=== PATIENT | male | born 1955 | race Caucasian/White ===

== ENCOUNTER → 2020-02-08 12:10 | Outpatient (BNVA) | payer SELFPAY | PROVIDERS: Family Provider Nurse Practitioner Family; PCP Nurse Practitioner Family; Visit Provider Specialist | DX: G43.909 Migraine, unspecified, not intractable, without status migrainosus (principal) | CPT/HCPCS: 99212 ==

== ENCOUNTER → 2020-06-02 08:24 | Outpatient (BNVA) | payer SELFPAY | PROVIDERS: Family Provider Nurse Practitioner Family; PCP Nurse Practitioner Family; Visit Provider Nurse Practitioner Family | DX: I10 Essential (primary) hypertension (principal); E87.5 Hyperkalemia; R79.89 Other specified abnormal findings of blood chemistry; R74.8 Abnormal levels of other serum enzymes | CPT/HCPCS: 80053 ==

== ENCOUNTER → 2020-08-22 09:01 | Outpatient (BNVA) | payer SELFPAY | PROVIDERS: Family Provider Nurse Practitioner Family; PCP Nurse Practitioner Family; Visit Provider Registered Nurse | DX: N18.30 Chronic kidney disease, stage 3 unspecified (principal) | CPT/HCPCS: 81000; 82043 ==

== ENCOUNTER → 2020-08-30 08:43 | Outpatient (BNVA) | payer SELFPAY | PROVIDERS: Family Provider Nurse Practitioner Family; PCP Nurse Practitioner Family; Visit Provider Internal Medicine Nephrology | DX: N18.32 Chronic kidney disease, stage 3b (principal) | CPT/HCPCS: 81003 ==

== ENCOUNTER → 2020-09-09 09:06 | Outpatient (BNVA) | payer SELFPAY | PROVIDERS: Family Provider Nurse Practitioner Family; PCP Nurse Practitioner Family; Visit Provider Nurse Practitioner Family | DX: N18.30 Chronic kidney disease, stage 3 unspecified (principal) | CPT/HCPCS: 81000 ==

== ENCOUNTER → 2020-12-07 08:11 | Outpatient (BNVA) | payer SELFPAY | PROVIDERS: Family Provider Nurse Practitioner Family; PCP Nurse Practitioner Family; Visit Provider Registered Nurse | DX: N18.32 Chronic kidney disease, stage 3b (principal) | CPT/HCPCS: 80069; 82043; 82306; 82310; 83970 ==

== ENCOUNTER → 2020-12-28 08:04 | Outpatient (BNVA) | payer SELFPAY | PROVIDERS: Family Provider Nurse Practitioner Family; PCP Nurse Practitioner Family; Visit Provider Internal Medicine Nephrology | DX: N18.32 Chronic kidney disease, stage 3b (principal) | CPT/HCPCS: 80048 ==

== ENCOUNTER → 2021-01-31 08:10 | Outpatient (BNVA) | payer SELFPAY | PROVIDERS: Family Provider Nurse Practitioner Family; PCP Nurse Practitioner Family; Visit Provider Nurse Practitioner | DX: Z01.89 Encounter for other specified special examinations (principal) ==

== ENCOUNTER → 2021-02-07 09:01 | Outpatient (BNVA) | payer SELFPAY | PROVIDERS: Family Provider Nurse Practitioner Family; PCP Nurse Practitioner Family; Visit Provider Nurse Practitioner Family | DX: E87.5 Hyperkalemia (principal); E78.5 Hyperlipidemia, unspecified; I10 Essential (primary) hypertension; E11.69 Type 2 diabetes mellitus with other specified complication; N52.9 Male erectile dysfunction, unspecified; N18.9 Chronic kidney disease, unspecified | CPT/HCPCS: 80053 ==

== ENCOUNTER → 2021-02-15 08:30 | Outpatient (BNVA) | payer SELFPAY | PROVIDERS: Family Provider Nurse Practitioner Family; PCP Nurse Practitioner Family; Visit Provider Internal Medicine Nephrology | DX: N18.9 Chronic kidney disease, unspecified (principal) | CPT/HCPCS: 80048 ==

== ENCOUNTER → 2021-03-13 08:31 | Outpatient (BNVA) | payer SELFPAY | PROVIDERS: Family Provider Nurse Practitioner Family; PCP Nurse Practitioner Family; Visit Provider Nurse Practitioner Family | DX: E87.5 Hyperkalemia (principal); I10 Essential (primary) hypertension | CPT/HCPCS: 80048 ==

== ENCOUNTER → 2021-05-02 09:01 | Outpatient (BNVA) | payer SELFPAY | PROVIDERS: Family Provider Nurse Practitioner Family; PCP Dermatology; Visit Provider Dermatology | DX: Z01.89 Encounter for other specified special examinations (principal) ==

== ENCOUNTER → 2021-06-07 08:13 | Outpatient (BNVA) | payer SELFPAY | PROVIDERS: Family Provider Nurse Practitioner Family; PCP Nurse Practitioner Family; Visit Provider Internal Medicine Nephrology | DX: N18.32 Chronic kidney disease, stage 3b (principal) | CPT/HCPCS: 80069; 82043; 82310; 83970; 85025 ==

== ENCOUNTER → 2021-07-25 09:44 | Outpatient (BNVA) | payer SELFPAY | PROVIDERS: Family Provider Nurse Practitioner Family; PCP Nurse Practitioner Family; Visit Provider Dermatology | DX: Z01.89 Encounter for other specified special examinations (principal) ==

== ENCOUNTER → 2021-10-24 09:12 | Outpatient (BNVA) | payer SELFPAY | PROVIDERS: Family Provider Nurse Practitioner Family; PCP Nurse Practitioner Family; Visit Provider Dermatology | DX: Z01.89 Encounter for other specified special examinations (principal) ==

== ENCOUNTER → 2022-01-23 08:20 | Outpatient (BNVA) | payer SELFPAY | PROVIDERS: Family Provider Nurse Practitioner Family; PCP Nurse Practitioner Family; Visit Provider Dermatology | DX: Z01.89 Encounter for other specified special examinations (principal) ==

== ENCOUNTER 2022-03-09 14:32 | Outpatient (CLI) | payer MEDICARE, SELFPAY ==
--- NOTE | 2022-03-09 15:00 | USCV_ITS ---
Darvin Marrero Age: 66 Gender: M : 1955 Exam Date: 03/09/2022 14:59 Ordering Phys: Vidhya Pearson MD ([email or web address]) Technologist: GROVER Exam Location: [facility] – [place] Indication: SOB/AI BP: 130 / 84 HR: 69 Rhythm: Sinus Technical Quality: Adequate MEASUREMENTS (Male / Female) Normal Values 2D ECHO LV Diastolic Diameter PLAX 4.8 cm 4.2 - 5.9 / 3.9 - 5.3 cm LV Systolic Diameter PLAX 2.9 cm IVS Diastolic Thickness 1.0 cm 0.6 - 1.0 / 0.6 - 0.9 cm IVS Systolic Thickness 1.2 cm LVPW Diastolic Thickness 1.0 cm 0.6 - 1.0 / 0.6 - 0.9 cm LVPW Systolic Thickness 1.8 cm LVOT Diameter 2.2 cm LV Ejection Fraction 2D Teich 69.5 % LV Ejection Fraction MOD 2C 68.6 % LV Ejection Fraction 2C AL 70.5 % LA Diameter 2.5 cm LA Width 3.2 cm LA Height 4.5 cm RA Width 2.4 cm RA Height 3.6 cm Aorta at Sinotubular Diameter 3.0 cm IVC Diameter 1.1 cm DOPPLER AV Peak Velocity 123.0 cm/s LVOT Peak Velocity 94.0 cm/s AV Area Cont Eq vti 3.0 cm squared AV Area Cont Eq pk 2.9 cm squared MV Peak Velocity 121.0 cm/s MV Area PHT 5.0 cm squared Mitral E to A Ratio 0.7 MV E' Velocity 30.5 cm/s Mitral E to MV E' Ratio 6.3 Mitral E to LV E' Lateral Ratio 4.9 Mitral E to LV E' Septal Ratio 8.6 TR Peak Velocity 206.7 cm/s TR Peak Gradient 17.1 mmHg Right Atrial Pressure 3.0 mmHg Pulmonary Artery Systolic Pressu 20.1 mmHg PV Peak Velocity 72.0 cm/s RV Acceleration Time 0.1 s FINDINGS Left Ventricle Mildly dilated left ventricular size. Mildly decreased left ventricular systolic function. Left ventricular ejection fraction is estimated at 50-55 %. Mild global hypokinesis. Grade II diastolic dysfunction, moderately elevated filling pressures. Right Ventricle Normal right ventricular size and systolic function. Right ventricular systolic pressure 29 mmHg. Right Atrium Normal right atrial size. Left Atrium Mildly increased left atrial size. Mitral Valve Structurally normal mitral valve. No mitral valve stenosis. Trace mitral valve regurgitation. Aortic Valve Mildly thickened trileaflet aortic valve. No aortic valve stenosis. Moderate to severe aortic valve regurgitation. Tricuspid Valve Structurally normal tricuspid valve. No tricuspid valve stenosis. Trace to mild tricuspid valve regurgitation. Pulmonic Valve Structurally normal pulmonic valve. No pulmonary valve stenosis. Trace pulmonary valve regurgitation. Pericardium No pericardial effusion. Aorta Normal size aortic root and proximal ascending aorta. IVC Normal inferior vena cava. CONCLUSIONS 1. Mildly dilated left ventricular size. Mildly decreased left ventricular systolic function. Left ventricular ejection fraction is estimated at 50-55 %. Mild global hypokinesis. Grade II diastolic dysfunction, moderately elevated filling pressures. 2. Normal right ventricular size and systolic function. 3. Moderate to severe aortic valve regurgitation. 4. Pulmonary pressure estimated at 29 mmHg. 5. When compared to previous study dated 07/11/2018, aortic valve regurgitation seems to have worsened slightly. Vidhya Pearson MD (Electronically Signed) Final Date: 12 March 2022 17:15 S
== END 2022-03-09 14:33 | disposition home or self-care (01) ==
LOC: RAD 14:36
PROVIDERS: PCP Nurse Practitioner Family; Visit Provider Internal Medicine Cardiovascular Disease
DX: R06.02 Shortness of breath (principal); I35.1 Nonrheumatic aortic (valve) insufficiency
CPT/HCPCS: C8929; Q9956

== ENCOUNTER → 2022-04-02 13:33 | Outpatient (BNVA) | payer MEDICARE, SELFPAY | PROVIDERS: PCP Nurse Practitioner Family; Visit Provider Internal Medicine Cardiovascular Disease | DX: I11.0 Hypertensive heart disease with heart failure (principal); I50.9 Heart failure, unspecified; E78.5 Hyperlipidemia, unspecified; I35.1 Nonrheumatic aortic (valve) insufficiency; E11.69 Type 2 diabetes mellitus with other specified complication; Z79.84 Long term (current) use of oral hypoglycemic drugs | CPT/HCPCS: 99214 ==

== ENCOUNTER → 2022-04-24 08:10 | Outpatient (BNVA) | payer SELFPAY | PROVIDERS: PCP Nurse Practitioner Family; Visit Provider Dermatology | DX: Z01.89 Encounter for other specified special examinations (principal); I11.0 Hypertensive heart disease with heart failure; I50.9 Heart failure, unspecified; I35.1 Nonrheumatic aortic (valve) insufficiency; E11.9 Type 2 diabetes mellitus without complications; E78.5 Hyperlipidemia, unspecified ==

== ENCOUNTER → 2022-07-04 09:36 | Outpatient (BNVA) | payer MEDICARE, SELFPAY | PROVIDERS: PCP Nurse Practitioner Family; Visit Provider Nurse Practitioner Family | DX: N18.9 Chronic kidney disease, unspecified (principal) | CPT/HCPCS: 80069; 82043; 82310; 83970; 85025 ==

== ENCOUNTER → 2022-07-24 08:33 | Outpatient (BNVA) | payer MEDICARE, SELFPAY | PROVIDERS: PCP Nurse Practitioner Family; Visit Provider Podiatrist Foot & Ankle Surgery | DX: E11.42 Type 2 diabetes mellitus with diabetic polyneuropathy (principal); M20.41 Other hammer toe(s) (acquired), right foot; M20.42 Other hammer toe(s) (acquired), left foot; M20.21 Hallux rigidus, right foot; M20.22 Hallux rigidus, left foot; Z01.89 Encounter for other specified special examinations | CPT/HCPCS: 99214 ==

== ENCOUNTER → 2022-07-24 09:41 | Outpatient (BNVA) | payer SELFPAY | PROVIDERS: PCP Nurse Practitioner Family; Referring Provider Dermatology; Visit Provider Family Medicine | DX: Z01.89 Encounter for other specified special examinations (principal) ==

== ENCOUNTER → 2022-08-08 08:18 | Outpatient (BNVA) | payer MEDICARE, SELFPAY | PROVIDERS: PCP Nurse Practitioner Family; Visit Provider Nurse Practitioner Family | DX: E87.6 Hypokalemia (principal) | CPT/HCPCS: 80048 ==

== ENCOUNTER → 2022-10-23 08:33 | Outpatient (BNVA) | payer MEDICARE, SELFPAY | PROVIDERS: PCP Nurse Practitioner Family; Visit Provider Dermatology | DX: Z01.89 Encounter for other specified special examinations (principal) ==

== ENCOUNTER → 2023-01-22 08:31 | Outpatient (BNVA) | payer MEDICARE, SELFPAY | PROVIDERS: PCP Nurse Practitioner Family; Visit Provider Dermatology | DX: Z01.89 Encounter for other specified special examinations (principal) ==

== ENCOUNTER → 2023-02-13 08:18 | Outpatient (BNVA) | payer MEDICARE, SELFPAY | PROVIDERS: PCP Nurse Practitioner Family; Visit Provider Nurse Practitioner Family | DX: Z12.5 Encounter for screening for malignant neoplasm of prostate (principal); E87.5 Hyperkalemia | CPT/HCPCS: 80053; G0103 ==

== ENCOUNTER → 2023-02-21 14:47 | Outpatient (BNVA) | payer MEDICARE, SELFPAY | PROVIDERS: PCP Nurse Practitioner Family; Referring Provider Nurse Practitioner Family; Visit Provider Dermatology | DX: L57.0 Actinic keratosis (principal); D82.1 Di George's syndrome; L81.4 Other melanin hyperpigmentation | CPT/HCPCS: 11102; 17000; 17003; 99203 ==

== ENCOUNTER → 2023-02-26 15:01 | Outpatient (BNVA) | payer MEDICARE, SELFPAY | PROVIDERS: PCP Nurse Practitioner Family; Visit Provider Surgery | DX: Z12.11 Encounter for screening for malignant neoplasm of colon (principal) | CPT/HCPCS: 99024; 99203 ==

== ENCOUNTER 2023-03-22 08:01 | Day surgery (SDC) | payer MEDICARE, SELFPAY ==
[2023-03-20 10:07] VITALS: BMI 22.8
[2023-03-22 08:36] VITALS: BP 120/43; PULSE 75; RESP 18; TEMP 36.6; O2SAT 99
[2023-03-22] MEDS: sodium chloride 0.9% 1,000 ML 30 ML IV (08:43)
[2023-03-22 08:49] LABS: Glucose Point of Care 142 mg/dL (70-110)
--- NOTE | 2023-03-22 08:53 | ANES.PREANE2 ---
Pre-Anesthetic Assessment Height/Weight: Height 1.7 m Weight 66.224 kg Temp Pulse Resp BP Pulse Ox O2 Del Method 98 F 75 18 120/43 99 Room Air 03/22/23 08:36 03/22/23 08:36 03/22/23 08:36 03/22/23 08:36 03/22/23 08:36 03/22/23 08:36 Operation Date: 03/22/23 09:15 Proposed Procedures p Colonoscopy 65010,Z12.11(Not Applicable) - Jonathan Meyers DO Familial anesthetic complications: None Was Beta Amado taken within 24 hours: Yes Was Clonidine taken within 24 hours: N/A Last intake: > 8hrs Social No alcohol and No tobacco Exam alert, oriented x 3, clear to auscultation bilaterally and regular rate & rhythm Airway Mallampati: Class II Dentition: false CV/HEM Congestive Heart Failure and Hypertension 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 Only symptom is heart racing when being active out in the hot sun Chronic Renal Insufficiency Metabolic Diabetes Mellitus Anesthetic Plan ASA status: 3 Anesthesia: MAC Risk of > 500 ml blood loss (7ml/kg in children): No Medications/Allergies Home Medications Medication Instructions Recorded Confirmed Last Taken Type aspirin 81 mg tablet,delayed 81 mg PO DAILY 08/25/19 03/22/23 03/21/23 History release (Adult Low Dose Aspirin) cetirizine 10 mg tablet (24Hour 10 mg PO DAILY 08/25/19 03/22/23 03/21/23 History Allergy) Diabetic shoes with 4 molded #1 ea 07/25/20 02/26/23 Unknown Rx inserts vitamin B complex (B 1 tab PO DAILY 04/04/21 03/22/23 03/21/23 History Complex-Vitamin B12 tablet) Diabetic Shoes with 3 Pairs of #1 ea 07/24/22 02/26/23 Unknown Rx Inserts Diabetic shoes with 3 molded #1 ea 08/21/22 02/26/23 Unknown Rx inserts amlodipine 10 mg tablet 10 mg PO DAILY #90 tabs 01/25/23 03/22/23 03/21/23 Rx ezetimibe 10 mg tablet 10 mg PO DAILY #90 tabs 01/25/23 03/22/23 03/21/23 Rx fenofibrate nanocrystallized 160 160 mg PO DAILY 90 days #90 tabs 01/25/23 03/22/23 03/21/23 Rx mg tablet glipizide 10 mg tablet 10 mg PO BID 90 days #180 tabs 01/25/23 03/22/23 03/21/23 Rx lisinopril 5 mg tablet 5 mg PO DAILY 90 days #90 tabs 01/25/23 03/22/23 03/21/23 Rx propranolol 20 mg tablet 20 mg PO BID 90 days #180 tabs 01/25/23 03/22/23 03/21/23 Rx sitagliptin phosphate 100 mg 100 mg PO DAILY 90 days #90 tabs 01/25/23 03/22/23 03/21/23 Rx tablet (Januvia) tadalafil 10 mg tablet (Cialis) 10 mg PO DAILY PRN sexual activity 01/25/23 03/22/23 03/21/23 Rx 90 days #12 tabs Allergies Allergy/AdvReac Type Severity Reaction Status Date / Time No Known Allergies Allergy Verified 03/20/23 10:04 Current Medications Generic Name Dose Route Start Last Admin Trade Name Freq PRN Reason Stop Dose Admin Sodium Chloride 1,000 mls @ 30 mls/hr 03/22/23 08:15 03/22/23 08:43 Sodium Chloride 0.9% IV 03/23/23 08:14 30 mls/hr .Q24H NERIS Administration PFSH Anesthesia Medical History (Updated 02/26/23 @ 15:33 by Jonathan Meyers DO) Aortic valve regurgitation CHF (congestive heart failure), NYHA class III Chronic migraine Diabetes mellitus Dyslipidemia Erectile dysfunction Essential hypertension Hepatopathy High serum creatinine History of shingles Left ventricular hypokinesis Rheumatic aortic valve insufficiency Surgical History (Updated 02/26/23 @ 15:33 by Jonathan Meyers DO) Hx of colonoscopy around 12years ago, No polyps S/P cervical spinal fusion S/P sinus surgery S/P tooth extraction Family History Mother Heart disease Diabetes Father Heart disease Other Cancer Social History Smoking and tobacco status: never smoked Alcohol intake: never Substance/Drug Use: never Adopted: No Lives independently: No Household members: spouse Housing: House Marital status: Number of children: 0 Highest education level completed: High School Graduate service: No Current occupational status: retired Pets and animals: Yes Current gender identity: Male Data Anesthesia Cardiac Studies: Echocardiogram 03/09/22
--- NOTE | 2023-03-22 09:50 | W.PM.OPSUD ---
Surgery/Procedure H&P Update DATE OF PROCEDURE: March 22, 2023 DATE H&P PERFORMED: 02/26/23 H&P UPDATE INFORMATION: I have reviewed H&P completed within last 30 days, I have examined patient prior to procedure and No changes to prior documentation PLANNED PROCEDURE: Operation Date: 03/22/23 09:15 Proposed Procedures p Colonoscopy 89570,Z12.11(Not Applicable) - Jonathan Meyers, DO
[2023-03-22 10:09] VITALS: BP 90/44; PULSE 69; RESP 20; TEMP 36.1; O2SAT 98
--- NOTE | 2023-03-22 10:15 | ANE.PACU2 ---
Inpatient post-anesthesia follow up: Airway intact: Yes Vital signs: Temperature 97 F Pulse Rate 66 Respiratory Rate 18 Blood Pressure 105/50 Pulse Oximetry 99 Oxygen Delivery Me thod Room Air Oxygen Flow Rate Fraction of Inspir ed Oxygen Hydration adequate: Yes Nausea and vomiting: No Pain level: 1 Mental status: Baseline
[2023-03-22 10:24] VITALS: BP 100/50; PULSE 66; RESP 18; O2SAT 99
[2023-03-22 10:31] VITALS: BP 105/50; PULSE 66; RESP 18; O2SAT 99
== END 2023-03-22 10:50 | disposition home or self-care (01) ==
PROVIDERS: PCP Nurse Practitioner Family; Visit Provider Surgery
PROC: 0DJD8ZZ Inspection of Lower Intestinal Tract, Via Natural or Artificial Opening Endoscopic (ICD-10-PCS; CPT 45378; principal; 2023-03-22 09:15)
DX: Z12.11 Encounter for screening for malignant neoplasm of colon (principal); I50.9 Heart failure, unspecified; N18.9 Chronic kidney disease, unspecified; I13.0 Hypertensive heart and chronic kidney disease with heart failure and stage 1 through stage 4 chronic kidney disease, or unspecified chronic kidney disease; E11.22 Type 2 diabetes mellitus with diabetic chronic kidney disease; Z79.82 Long term (current) use of aspirin; Z79.84 Long term (current) use of oral hypoglycemic drugs
CPT/HCPCS: 36416; 82962; G0121; J2704; J7030

== ENCOUNTER → 2023-04-01 14:00 | Outpatient (BNVA) | payer MEDICARE, SELFPAY | PROVIDERS: PCP Nurse Practitioner Family; Visit Provider Internal Medicine Cardiovascular Disease | DX: I11.0 Hypertensive heart disease with heart failure (principal); I50.20 Unspecified systolic (congestive) heart failure; I35.1 Nonrheumatic aortic (valve) insufficiency | CPT/HCPCS: 99214 ==

== ENCOUNTER → 2023-04-23 08:20 | Outpatient (BNVA) | payer MEDICARE, SELFPAY | PROVIDERS: PCP Nurse Practitioner Family; Visit Provider Dermatology | DX: Z01.89 Encounter for other specified special examinations (principal) ==

== ENCOUNTER → 2023-07-10 08:07 | Outpatient (BNVA) | payer MEDICARE, SELFPAY | PROVIDERS: PCP Nurse Practitioner Family; Visit Provider Nurse Practitioner | DX: N18.32 Chronic kidney disease, stage 3b (principal) | CPT/HCPCS: 80069; 82306; 82310; 82570; 83970; 84156; 85025 ==

== ENCOUNTER 2023-07-23 09:01 | Outpatient (CLI) | payer MEDICARE, SELFPAY ==
[2023-07-23 10:03] LABS: HF Add Manual Diff No
[2023-07-23 10:09] LABS: Basophils # 0.1 10^3/uL (0.0-0.1); Basophils % 1.1 %; Eosinophils # 0.7 10^3/uL (0.0-0.8); Eosinophils % 12.6 %; Hematocrit 41.3 % (37-53); Mean Corpuscular HGB Conc 31.5 g/dL (30-55); Mean Corpuscular Volume 88.8 fl (82-101); Mean Platelet Volume 12.4 fL (7.4-10.4); Monocytes # 0.8 10^3/uL (0.2-0.9); Monocytes % 15.2 %; Neutrophils # 2.85 10^3/uL (1.8-7.7); Neutrophils % 52.9 %; Nucleated Red Blood Cells % 0 %; Platelet Count 199 10^3/cmm (157-399); Red Blood Count 4.65 10^6/uL (3.85-5.65); Red Cell Distribution Width 13.3 % (12.1-15.1); White Blood Count 5.39 10^3/uL (3.29-11.43)
[2023-07-23 10:35] LABS: Alanine Aminotransferase 18 U/L (0-41); Albumin Level 4.2 g/dL (3.5-5.2); Alkaline Phosphatase 84 U/L (40-130); Anion Gap 18.2 (5-19); Aspartate Amino Transferase 21 U/L (0-40); Blood Urea Nitrogen 36 mg/dL (8-23); Calcium 9.4 mg/dL (8.5-10.5); Carbon Dioxide 25 mmol/L (22-29); Chloride 101 mmol/L (98-107); Chol HDL Ratio 4.97 mg/dL (1.0-5.00); Cholesterol 179 mg/dL (0-200); Globulin 2.6 g/dL (1.3-4.6); Glomerular Filtration Rate 35.6 mL/min (90-130); Glucose 185 mg/dL (65-115); HDL Cholesterol 36 mg/dL (60-100); LDL Cholesterol Calculated 118 mg/dL (50-129); LDL HDL Ratio 3.28 RATIO (0.00-3.22); Osmolality Calculated 301 mOsm/kg (285-295); Potassium 5.2 mmol/L (3.5-5.1); Sodium 139 mmol/L (136-145); Total Bilirubin 0.2 mg/dL (0.15-1.2); Total Protein 6.8 g/dL (6.6-8.7); Triglycerides 126 mg/dL (0-150)
[2023-07-23 10:40] LABS: Estmated Average Glucose 194; Hemoglobin A1C 8.4 % (4.0-6.0)
== END 2023-07-23 09:02 | disposition home or self-care (01) ==
LOC: LAB 09:04
PROVIDERS: PCP Nurse Practitioner Family; Visit Provider Dermatology
DX: E11.42 Type 2 diabetes mellitus with diabetic polyneuropathy (principal); M20.41 Other hammer toe(s) (acquired), right foot; M20.42 Other hammer toe(s) (acquired), left foot; M20.21 Hallux rigidus, right foot; M20.22 Hallux rigidus, left foot; M79.671 Pain in right foot; M79.672 Pain in left foot
CPT/HCPCS: 36415; 99213

== ENCOUNTER → 2023-07-26 08:24 | Outpatient (BNVA) | payer MEDICARE, SELFPAY | PROVIDERS: PCP Nurse Practitioner Family; Visit Provider Nurse Practitioner Family | DX: L82.1 Other seborrheic keratosis (principal); L57.0 Actinic keratosis; L81.4 Other melanin hyperpigmentation; D48.5 Neoplasm of uncertain behavior of skin; L57.8 Other skin changes due to chronic exposure to nonionizing radiation | CPT/HCPCS: 11102; 17000; 99213 ==

== ENCOUNTER → 2023-07-29 09:01 | Outpatient (BNVA) | payer MEDICARE, SELFPAY | PROVIDERS: PCP Nurse Practitioner Family; Visit Provider Nurse Practitioner Family | DX: N18.32 Chronic kidney disease, stage 3b (principal) | CPT/HCPCS: 80069 ==

== ENCOUNTER → 2023-09-04 07:54 | Outpatient (BNVA) | payer MEDICARE, SELFPAY | PROVIDERS: PCP Nurse Practitioner Family; Visit Provider Nurse Practitioner Family | DX: I10 Essential (primary) hypertension (principal) | CPT/HCPCS: 80048 ==

== ENCOUNTER → 2023-10-03 08:36 | Outpatient (BNVA) | payer MEDICARE, SELFPAY | PROVIDERS: PCP Nurse Practitioner Family; Visit Provider Nurse Practitioner Family | DX: I10 Essential (primary) hypertension (principal) | CPT/HCPCS: 80048 ==

== ENCOUNTER → 2023-10-22 08:44 | Outpatient (BNVA) | payer SELFPAY | PROVIDERS: PCP Nurse Practitioner Family; Visit Provider Dermatology | DX: Z01.89 Encounter for other specified special examinations (principal) ==

== ENCOUNTER → 2023-10-29 10:37 | Outpatient (BNVA) | payer MEDICARE, SELFPAY | PROVIDERS: PCP Nurse Practitioner Family; Visit Provider Nurse Practitioner Family | DX: R79.89 Other specified abnormal findings of blood chemistry (principal) | CPT/HCPCS: 82310; 83970; 84443 ==

== ENCOUNTER → 2023-11-25 13:35 | Outpatient (BNVA) | payer MEDICARE, SELFPAY | PROVIDERS: PCP Nurse Practitioner Family; Visit Provider Dermatology | DX: L57.0 Actinic keratosis (principal); L82.0 Inflamed seborrheic keratosis; L21.8 Other seborrheic dermatitis; L81.4 Other melanin hyperpigmentation; L82.1 Other seborrheic keratosis | CPT/HCPCS: 17000; 17110; 99214 ==

== ENCOUNTER → 2024-01-13 08:14 | Outpatient (BNVA) | payer MEDICARE, SELFPAY | PROVIDERS: PCP Nurse Practitioner Family; Visit Provider Internal Medicine Nephrology | DX: N18.9 Chronic kidney disease, unspecified (principal); E55.9 Vitamin D deficiency, unspecified | CPT/HCPCS: 80069; 82043; 82306; 82310; 83970 ==

== ENCOUNTER 2024-02-26 14:56 | Emergency (ER) | payer MEDICARE, SELFPAY ==
[2024-02-26 15:03] VITALS: BP 156/53; PULSE 74; RESP 16; TEMP 36.7; O2SAT 99
--- NOTE | 2024-02-26 15:57 | CTR_ITS ---
PROCEDURE INFORMATION: Exam: CT Head Without Contrast Exam date and time: 02/26/2024 4:33 PM Age: 68 years old Clinical indication: Injury or trauma; Fall TECHNIQUE: Imaging protocol: Computed tomography of the head without contrast. Radiation optimization: All CT scans at this facility use at least one of these dose optimization techniques: automated exposure control; mA and/or kV adjustment per patient size (includes targeted exams where dose is matched to clinical indication); or iterative reconstruction. COMPARISON: CT facial bones wo con* [id number] 02/26/2024 4:33 PM RADIATION DOSE METRICS: Total DLP (mGy-cm): 291 FINDINGS: Brain: Normal. No hemorrhage. Unremarkable white matter. No mass effect or acute infarct. Cerebral ventricles: No ventriculomegaly. No midline shift. Paranasal sinuses: Visualized sinuses are unremarkable. No fluid levels. Mastoid air cells: Visualized mastoid air cells are well aerated. Bones: Unremarkable. No acute fracture. Soft tissues: Unremarkable. CT/CT head wo con* [id number] IMPRESSION: No acute intracranial abnormality.
--- NOTE | 2024-02-26 15:57 | CTR_ITS ---
PROCEDURE INFORMATION: Exam: CT Cervical Spine Without Contrast Exam date and time: 02/26/2024 4:33 PM Age: 68 years old Clinical indication: Injury or trauma; Fall TECHNIQUE: Imaging protocol: Computed tomography of the cervical spine without contrast. Radiation optimization: All CT scans at this facility use at least one of these dose optimization techniques: automated exposure control; mA and/or kV adjustment per patient size (includes targeted exams where dose is matched to clinical indication); or iterative reconstruction. COMPARISON: CT facial bones wo con* [id number] 02/26/2024 4:33 PM RADIATION DOSE METRICS: Total DLP (mGy-cm): 173.1 FINDINGS: Bones: Prior hardware and bony fusion from C4 through C6. Hardware failure evident. Generalized straightening of the cervical spine. Minimal anterolisthesis of C3 on C4. Partial bony fusion of the C6 and C7 vertebral bodies. There is also fusion of the right C6-C7 facet joint. No acute fracture or dislocation. There is moderate central stenosis at C4-C5. Moderate degenerative changes present in the facet joints, greatest on the right at C3-C4. Severe stenosis at the right C3-C4 foramen with mild narrowing at the left C3-C4 foramen. Mild narrowing at other neural foramina. Paranasal sinuses: Mucosal thickening maxillary sinuses. Lungs: No significant pathology of the lung apices. Soft tissues: No acute soft tissue pathology evident. CT/CT cervical spin wo con* [id number] IMPRESSION: No acute traumatic pathology. Postsurgical and degenerative changes as described above.
--- NOTE | 2024-02-26 15:57 | CTR_ITS ---
PROCEDURE INFORMATION: Exam: CT Maxillofacial Without Contrast Exam date and time: 02/26/2024 4:33 PM Age: 68 years old Clinical indication: Injury or trauma; Fall; Blunt trauma (contusions or hematomas); Forehead TECHNIQUE: Imaging protocol: Computed tomography of the face without contrast. Radiation optimization: All CT scans at this facility use at least one of these dose optimization techniques: automated exposure control; mA and/or kV adjustment per patient size (includes targeted exams where dose is matched to clinical indication); or iterative reconstruction. COMPARISON: CT head wo con* [id number] 02/26/2024 4:33 PM RADIATION DOSE METRICS: Total DLP (mGy-cm): 628 FINDINGS: Orbital cavities: Orbits are within normal limits. Paranasal sinuses: Partial opacification of bilateral maxillary sinuses. Bilateral maxillary antrostomies.Nasal septal deviation to the right. Prior ethmoidectomy. Minimal mucosal thickening in the sphenoid sinus. Frontal sinuses are patent. Mastoid air cells: Mastoids are within normal limits. Bones: Temporomandibular joints are intact. Soft tissues: There is infiltration of fat of the upper lip without evidence of subjacent fracture. There is a right frontal scalp swelling without subjacent skull fracture. CT/CT facial bones wo con* [id number] IMPRESSION: No acute fracture. Mild right frontal scalp swelling. Minor findings noted above.
--- NOTE | 2024-02-26 16:08 | W.ED.FALL ---
HPI - Fall General: Chief Complaint: Fall Stated Complaint: fall, nose wound, head wound Time Seen by Provider: 02/26/24 15:51 Source: patient Mode of arrival: ambulatory Limitations: no limitations History of Present Illness: 68-year-old male who states that he is walking up a ramp that was wet in the rain and slipped and fell and hit his head. He has a abrasion to the bridge of his nose where his glasses hit him he complains of face head neck pain. Denies any loss conscious rates his pain a 5 out of 10 he denies any other injuries. Associated symptoms-after fall: Reports headache(s) and neck pain; Denies abdominal pain or chest pain Review of Systems Const: Denies: fever(s), chills, body aches or change in appetite ENMT: Denies: throat pain or dental pain Card: Denies: chest pain Resp: Denies: dyspnea GI: Denies: abdominal pain, nausea, vomiting or diarrhea Musc: Reports: neck pain; Denies: back pain Skin/Breast: Denies: rash Neuro: Reports: headache(s) PFSH ED PFSH: Medical History Hepatopathy CHF (congestive heart failure), NYHA class III Aortic valve regurgitation Chronic migraine History of shingles High serum creatinine Essential hypertension Diabetes mellitus Dyslipidemia Erectile dysfunction Left ventricular hypokinesis Rheumatic aortic valve insufficiency Surgical History Hx of colonoscopy around 12years ago, No polyps S/P cervical spinal fusion S/P tooth extraction S/P sinus surgery Family History Mother Heart disease Diabetes Father Heart disease Other Cancer Social History Smoking and tobacco/nicotine status: never used tobacco/nicotine Alcohol intake: never Substance/Drug Use: never Adopted: No Lives independently: No Household members: spouse Housing: House Marital status: Number of children: 0 Highest education level completed: High School Graduate service: No Current occupational status: retired Pets and animals: Yes Current gender identity: Male Physical Exam Const: COMMON NORMALS: no acute distress, patient oriented x3 and healthy appearing HENMT: OTHER: Abrasion noted to his forehead along with the bridge of his nose Eye: COMMON NORMALS: Equal, round and reactive pupils present and EOMs intact bilaterally PUPIL: Yes Equal, round and reactive pupils present Neck/C-Spine: COMMON NORMALS: full ROM and supple Chest: COMMONS NORMALS: normal inspection of the chest Resp: COMMON NORMALS: normal respiratory effort Cardio: COMMON NORMALS: regular rate, regular rhythm and No murmurs present (Cardio) RATE: regular rate RHYTHM: regular rhythm Extremity: COMMON NORMALS: normal to inspection Neuro: COMMON NORMALS: patient oriented x3, moves all extremities and no focal motor deficits Psych: COMMON NORMALS: mental status grossly normal, Normal thought process present and cooperative THOUGHT PROCESS: Normal thought process present Skin: COMMON NORMALS: no rashes or lesions noted and no wounds GENERAL SKIN EXAM: no rashes or lesions noted Course Vital Signs: Vital signs: Vital Signs Temperature 98.0 F 02/26/24 15:03 Pulse Rate 74 02/26/24 15:03 Respiratory Rate 16 02/26/24 15:03 Blood Pressure 156/53 02/26/24 15:03 Pulse Oximetry 99 02/26/24 15:03 Oxygen Delivery Me thod Room Air 02/26/24 15:03 MDM - Fall Medical Decision Making Patient presents here with close head injury along with facial abrasions after a fall no lacerations imaging here is all normal he has been well-appearing here he stable for discharge follow-up PCP return if worsening Medical Records I reviewed the patient's medical records. Lab Data Radiology Impressions Cervical Spine CT 02/26/24 15:57 IMPRESSION: No acute traumatic pathology. Postsurgical and degenerative changes as described above. Face CT 02/26/24 15:57 IMPRESSION: No acute fracture. Mild right frontal scalp swelling. Minor findings noted above. Head CT 02/26/24 15:57 IMPRESSION: No acute intracranial abnormality. All radiology interpretation(s) finalized by discharge Discharge Plan Discharge Patient Disposition: Home Clinical Impression: Abrasion of face Fall Qualifiers: Encounter type: initial encounter Qualified Code(s): W19.XXXA - Unspecified fall, initial encounter Closed head injury Qualifiers: Encounter type: initial encounter Qualified Code(s): S09.90XA - Unspecified injury of head, initial encounter Condition: Stable Prescriptions: No Action cetirizine [24Hour Allergy] 10 mg tablet 10 mg PO DAILY aspirin [Adult Low Dose Aspirin] 81 mg tablet,delayed release (DR/EC) 81 mg PO DAILY vitamin B complex [B Complex-Vitamin B12] Tablet 1 tab PO DAILY (DME) Diabetic shoes with custom molded inserts See Rx Instructions .Route .MEDSUPPLY Qty: 1 0RF Rx Instructions: As directed by [facility] 25 mg tablet 25 mg PO DAILY Qty: 90 1RF Rx Instructions: 340B tadalafil [Cialis] 10 mg tablet 10 mg PO DAILY PRN (Reason: sexual activity) 90 Days Qty: 12 1RF Rx Instructions: 30min before sexual activity; 1 dose per 24hrs; 340B, please Januvia 100 mg tablet 100 mg PO DAILY 90 Days Qty: 90 1RF Rx Instructions: 340B, please propranolol 20 mg tablet 20 mg PO BID 90 Days Qty: 180 1RF lisinopril 5 mg tablet 5 mg PO DAILY 90 Days Qty: 90 1RF glipizide 10 mg tablet 10 mg PO BID 90 Days Qty: 180 1RF Rx Instructions: 340B, please fenofibrate nanocrystallized 160 mg tablet 160 mg PO DAILY 90 Days Qty: 90 1RF Rx Instructions: 340B, please ezetimibe 10 mg tablet 10 mg PO DAILY Qty: 90 1RF amlodipine 10 mg tablet 10 mg PO DAILY Qty: 90 1RF Discharge Orders: Discharge ED (Routine); Ordered 02/26/24 Ordered By: Garrett Doll Referrals: Alyssa Stanford FNP-C [Primary Care Provider] - Discharge Diet: Advance as tolerated Discharge Activity: Resume usual activity Patient Instructions: Head Injury (ED) Coding Level of Care Code ED Surgical Appliance Fitter for Rogelio Parker
== END 2024-02-26 17:56 | disposition home or self-care (01) ==
PROVIDERS: Emergency Provider Emergency Medicine; PCP Nurse Practitioner Family
DX: S00.81XA Abrasion of other part of head, initial encounter (principal); S00.31XA Abrasion of nose, initial encounter; Z79.82 Long term (current) use of aspirin; Z79.84 Long term (current) use of oral hypoglycemic drugs; I11.0 Hypertensive heart disease with heart failure; I50.9 Heart failure, unspecified; E11.9 Type 2 diabetes mellitus without complications; E78.5 Hyperlipidemia, unspecified; W01.0XXA Fall on same level from slipping, tripping and stumbling without subsequent striking against object, initial encounter
CPT/HCPCS: 70450; 70486; 72125; 99284

== ENCOUNTER → 2024-04-28 08:43 | Outpatient (BNVA) | payer MEDICARE, SELFPAY | PROVIDERS: PCP Nurse Practitioner Family; Visit Provider Nurse Practitioner Family | DX: E11.9 Type 2 diabetes mellitus without complications (principal); I10 Essential (primary) hypertension | CPT/HCPCS: 80053; 80061; 83036; 85025 ==

== ENCOUNTER → 2024-04-30 16:02 | Outpatient (BNVA) | payer MEDICARE, SELFPAY | PROVIDERS: PCP Nurse Practitioner Family; Visit Provider Internal Medicine Cardiovascular Disease | DX: I35.1 Nonrheumatic aortic (valve) insufficiency (principal); I10 Essential (primary) hypertension | CPT/HCPCS: 99214 ==

== ENCOUNTER → 2024-05-26 13:05 | Outpatient (BNVA) | payer MEDICARE, SELFPAY | PROVIDERS: PCP Nurse Practitioner Family; Visit Provider Nurse Practitioner Family | DX: Z85.828 Personal history of other malignant neoplasm of skin (principal) | CPT/HCPCS: 99214 ==

== ENCOUNTER 2024-05-29 08:54 | Outpatient (CLI) | payer MEDICARE, SELFPAY ==
--- NOTE | 2024-05-29 09:15 | USCV_ITS ---
Darvin Marrero Age: 68 Gender: M : 1955 Exam Date: 05/29/2024 09:21 Ordering Phys: Collins Hinds MD ([email or web address]) Technologist: CT Exam Location: [facility] [place] Indication: BP: 137 / 57 HR: 67 Rhythm: Sinus Technical Quality: Adequate MEASUREMENTS (Male / Female) Normal Values 2D ECHO LVOT Diameter 2.3 cm LV Ejection Fraction MOD 4C 60.8 % LV Ejection Fraction MOD 2C 58.5 % LV Ejection Fraction 2C AL 59.2 % LA Diameter 3.3 cm RA Systolic Volume 4C AL 24.8 ml RA Systolic Volume 4C MOD 24.0 ml LA Sys Volume AL 47.8 cm cubed LA Sys Volume Index AL 27.0 cm cubed/m squared Aorta at Sinotubular Diameter 2.4 cm M-MODE LA Ao Ratio MM 1.2 AV Cusp Separation MM 2.5 cm DOPPLER AV Peak Velocity 370.7 cm/s LVOT Peak Velocity 109.0 cm/s AV Area Cont Eq vti 2.6 cm squared AV Area Cont Eq pk 1.2 cm squared MV Peak Velocity 67.0 cm/s MV Area PHT 4.9 cm squared Mitral E to A Ratio 1.1 TR Peak Velocity 294.0 cm/s TR Peak Gradient 34.6 mmHg TR Mean Velocity 196.0 cm/s TR Mean Gradient 18.6 mmHg TR Velocity Time Integral 87.1 cm TV Peak E Velocity 87.0 cm/s Right Atrial Pressure 3.0 mmHg Pulmonary Artery Systolic Pressu 37.6 mmHg PV Peak Velocity 81.5 cm/s FINDINGS Left Ventricle Normal left ventricular size, systolic function and wall thickness, with no regional wall motion abnormalities. Left ventricular ejection fraction is estimated at 60 %. Grade II/IV diastolic dysfunction, moderately elevated filling pressures. Right Ventricle The right ventricle is normal in size and function. Mild pulmonary hypertension, RVSP 37.6 mmHg. Right Atrium The right atrium is normal in size. Left Atrium Moderately increased left atrial size. Mitral Valve Moderately thickened mitral valve. No mitral valve stenosis. Mild mitral valve regurgitation. Aortic Valve Moderate aortic valve calcification. No aortic valve stenosis. Moderate aortic valve regurgitation. Tricuspid Valve Structurally normal tricuspid valve without significant stenosis or regurgitation. Pulmonary artery systolic pressure is normal. Pulmonic Valve Structurally normal pulmonic valve without significant stenosis. There is no pulmonic regurgitation. Pericardium Normal pericardium without effusion. Aorta Normal ascending aorta dimension. IVC The inferior vena cava appears normal. CONCLUSIONS Normal left ventricular size, systolic function and wall thickness, with no regional wall motion abnormalities. Left ventricular ejection fraction is estimated at 60 %. Grade II/IV diastolic dysfunction, moderately elevated filling pressures. Moderately increased left atrial size. Moderately thickened mitral valve. No mitral valve stenosis. Mild mitral valve regurgitation. Moderate aortic valve calcification. No aortic valve stenosis. Moderate aortic valve regurgitation. The right ventricle is normal in size and function. Mild pulmonary hypertension, RVSP 37.6 mmHg. Right atrial pressure is around 10 mm of mercury. Collins Hinds MD (Electronically Signed) Final Date: 29 May 2024 19:20 S
== END 2024-05-29 08:55 | disposition home or self-care (01) ==
LOC: RAD 08:55
PROVIDERS: PCP Nurse Practitioner Family; Visit Provider Internal Medicine Cardiovascular Disease
DX: I35.1 Nonrheumatic aortic (valve) insufficiency (principal); I50.30 Unspecified diastolic (congestive) heart failure; I51.7 Cardiomegaly; I34.81 Nonrheumatic mitral (valve) annulus calcification
CPT/HCPCS: 93306

== ENCOUNTER → 2024-07-13 09:40 | Outpatient (BNVA) | payer MEDICARE, SELFPAY | PROVIDERS: PCP Nurse Practitioner Family; Visit Provider Internal Medicine Nephrology | DX: N18.32 Chronic kidney disease, stage 3b (principal) | CPT/HCPCS: 80069; 82043; 82306; 82310; 83970; 85025 ==

== ENCOUNTER → 2024-07-28 09:01 | Outpatient (BNVA) | payer MEDICARE, SELFPAY | PROVIDERS: PCP Nurse Practitioner Family; Visit Provider Podiatrist Foot & Ankle Surgery | DX: E11.42 Type 2 diabetes mellitus with diabetic polyneuropathy (principal); M20.41 Other hammer toe(s) (acquired), right foot; M20.42 Other hammer toe(s) (acquired), left foot; M20.21 Hallux rigidus, right foot; M20.22 Hallux rigidus, left foot; M79.671 Pain in right foot; M79.672 Pain in left foot | CPT/HCPCS: 99213 ==

== ENCOUNTER → 2024-11-24 12:46 | Outpatient (BNVA) | payer MEDICARE, SELFPAY | PROVIDERS: PCP Nurse Practitioner Family; Visit Provider Nurse Practitioner Family | DX: L57.0 Actinic keratosis (principal); L21.8 Other seborrheic dermatitis; L82.1 Other seborrheic keratosis; L81.4 Other melanin hyperpigmentation; L57.8 Other skin changes due to chronic exposure to nonionizing radiation; X32.XXXA Exposure to sunlight, initial encounter; Z08 Encounter for follow-up examination after completed treatment for malignant neoplasm; Z85.828 Personal history of other malignant neoplasm of skin | CPT/HCPCS: 99214 ==

== ENCOUNTER → 2025-01-01 08:11 | Outpatient (BNVA) | payer MEDICARE, OTHER, SELFPAY | PROVIDERS: PCP Nurse Practitioner Family; Visit Provider Nurse Practitioner Family | DX: N18.32 Chronic kidney disease, stage 3b (principal) | CPT/HCPCS: 80069; 82043; 82310; 83970; 85025 ==

== ENCOUNTER → 2025-04-26 10:24 | Outpatient (BNVA) | payer MEDICARE, OTHER, SELFPAY | PROVIDERS: PCP Nurse Practitioner Family; Visit Provider Nurse Practitioner Family | DX: L21.8 Other seborrheic dermatitis (principal); Z08 Encounter for follow-up examination after completed treatment for malignant neoplasm; Z85.828 Personal history of other malignant neoplasm of skin; L57.0 Actinic keratosis | CPT/HCPCS: 17000; 99214 ==

== ENCOUNTER → 2025-04-27 14:37 | Outpatient (BNVA) | payer MEDICARE, OTHER, SELFPAY | PROVIDERS: PCP Nurse Practitioner Family; Visit Provider Internal Medicine Cardiovascular Disease | DX: I10 Essential (primary) hypertension (principal); I35.1 Nonrheumatic aortic (valve) insufficiency; R00.2 Palpitations | CPT/HCPCS: 99214 ==

== ENCOUNTER 2025-05-21 07:45 | Outpatient (CLI) | payer MEDICARE, OTHER, SELFPAY ==
--- NOTE | 2025-05-21 08:00 | USCV_ITS ---
Darvin Marrero Age: 69 Gender: M : 1955 Exam Date: 05/21/2025 08:12 Ordering Phys: Collins Hinds MD ([email or web address]) Technologist: WILLA [place] [facility] [place]ication: Aortic Valve Insufficiency BP: 138 / 44 HR: 63 Rhythm: Sinus Technical Quality: Adequate MEASUREMENTS (Male / Female) Normal Values 2D ECHO LV Diastolic Diameter PLAX 5.3 cm 4.2 - 5.9 / 3.9 - 5.3 cm IVS Diastolic Thickness 0.9 cm 0.6 - 1.0 / 0.6 - 0.9 cm IVS Systolic Thickness 1.4 cm LVPW Diastolic Thickness 1.4 cm 0.6 - 1.0 / 0.6 - 0.9 cm LVPW Systolic Thickness 1.8 cm LVOT Diameter 2.0 cm LV Ejection Fraction 2D Teich 57.6 % LV Ejection Fraction MOD 4C 55.1 % LV Ejection Fraction MOD 2C 52.5 % LV Ejection Fraction 2C AL 51.3 % LA Diameter 2.9 cm RA Systolic Volume 4C AL 42.0 ml RA Systolic Volume 4C MOD 38.0 ml LA Sys Volume AL 44.2 cm cubed LA Sys Volume Index AL 25.7 cm cubed/m squared Aorta at Sinotubular Diameter 2.5 cm M-MODE LA Ao Ratio MM 1.4 AV Cusp Separation MM 1.7 cm DOPPLER AV Peak Velocity 160.0 cm/s LVOT Peak Velocity 86.0 cm/s AV Area Cont Eq vti 1.7 cm squared AV Area Cont Eq pk 1.7 cm squared MV Peak Velocity 193.0 cm/s MV Area PHT 4.3 cm squared Mitral E to A Ratio 0.9 TR Peak Velocity 133.0 cm/s TR Peak Gradient 7.1 mmHg TV Peak E Velocity 69.0 cm/s PV Peak Velocity 88.0 cm/s FINDINGS Left Ventricle Normal left ventricular size, systolic function and wall thickness, with no regional wall motion abnormalities. Left ventricular ejection fraction is estimated at 60 %. Grade I/IV diastolic dysfunction (abnormal relaxation filling pattern), normal to mildly elevated filling pressures. Right Ventricle Normal right ventricular size and systolic function. Right Atrium Normal right atrial size. Left Atrium Normal left atrial size. IA Septum Normal appearance of the interatrial septum. Mitral Valve Normal mitral valve structure. No mitral valve stenosis or regurgitation. Aortic Valve Moderate aortic valve calcification. No aortic valve stenosis. Moderate aortic valve regurgitation. Tricuspid Valve Normal tricuspid valve structure. No tricuspid valve stenosis or regurgitation. Normal pulmonary pressure. Pulmonic Valve Normal pulmonic valve structure. No pulmonic valve stenosis or regurgitation. Pericardium No pericardial effusion. Aorta Normal diameter of the aortic root and ascending thoracic aorta. IVC Normal IVC diameter. CONCLUSIONS Normal left ventricular size, systolic function and wall thickness, with no regional wall motion abnormalities. Left ventricular ejection fraction is estimated at 60 %. Grade I/IV diastolic dysfunction (abnormal relaxation filling pattern), normal to mildly elevated filling pressures. Moderate aortic valve calcification. No aortic valve stenosis. Moderate aortic valve regurgitation. There is no pericardial effusion. Right atrial pressure is around 10 mm of mercury. Collins Hinds MD (Electronically Signed) Final Date: 31 May 2025 20:05 S
== END 2025-05-21 07:46 | disposition home or self-care (01) ==
LOC: RAD 07:46
PROVIDERS: PCP Nurse Practitioner Family; Visit Provider Internal Medicine Cardiovascular Disease
DX: I35.1 Nonrheumatic aortic (valve) insufficiency (principal); R93.1 Abnormal findings on diagnostic imaging of heart and coronary circulation; I35.8 Other nonrheumatic aortic valve disorders
CPT/HCPCS: 93306

== ENCOUNTER → 2025-07-05 08:21 | Outpatient (BNVA) | payer MEDICARE, OTHER, SELFPAY | PROVIDERS: PCP Nurse Practitioner Family; Visit Provider Nurse Practitioner Family | DX: E11.69 Type 2 diabetes mellitus with other specified complication (principal); N18.9 Chronic kidney disease, unspecified; E55.9 Vitamin D deficiency, unspecified | CPT/HCPCS: 80069; 82306; 82310; 83970; 85025 ==

== ENCOUNTER → 2025-07-13 10:12 | Outpatient (BNVA) | payer MEDICARE, OTHER, SELFPAY | PROVIDERS: PCP Nurse Practitioner Family; Visit Provider Podiatrist Foot & Ankle Surgery | DX: E11.42 Type 2 diabetes mellitus with diabetic polyneuropathy (principal); M20.21 Hallux rigidus, right foot; M20.22 Hallux rigidus, left foot; M20.41 Other hammer toe(s) (acquired), right foot; M20.42 Other hammer toe(s) (acquired), left foot; E11.8 Type 2 diabetes mellitus with unspecified complications | CPT/HCPCS: 99213 ==